=== PATIENT | female | born 1950 | race Caucasian/White ===

== ENCOUNTER 2018-09-07 08:30 | Outpatient (CLI) | payer BC, MEDICARE ==
[~2018-09-07] VITALS: Ht 147.3 cm; Wt 44.5 kg
[2018-09-07] MEDS ORDERED: LORA0.5T PO (08:45)
[2018-09-07] MEDS ORDERED: TRAM50TA2 PO (08:45)
== END 2018-09-07 10:04 | disposition home or self-care (01) ==
LOC: PREOP 08:30
PROVIDERS: ATTEND Otolaryngology Otolaryngology/Facial Plastic Surgery
DX: Z01.818 Encounter for other preprocedural examination (principal)

== ENCOUNTER 2018-09-09 07:20 | Day surgery (SDC) | payer BC, MEDICARE, OTHER ==
[~2018-09-09] VITALS: Ht 147.3 cm; Wt 44.5 kg
[~2018-09-09 07:20] MED LIST: LORA0.5T PO; TRAM50TA2 PO
[2018-09-09] MEDS ORDERED: LACTATED RINGERS 1,000 ML IV PRN (07:42)
[2018-09-09 07:47] VITALS: BP 110/88
[2018-09-09 08:11] LABS: BASOPHILS # (AUTO) 0.1 10^3/uL (0.0-0.1); BASOPHILS % (AUTO) 1 % (0-10); EOSINOPHILS # (AUTO) 0.5 10^3/uL (0.0-0.3); EOSINOPHILS % (AUTO) 6 % (0-10); HEMATOCRIT 37 % (35-52); HEMOGLOBIN 11.7 G/DL (11.5-16.0); LYMPHOCYTES % (AUTO) 24 % (12-44); MEAN CORPUSCULAR HEMOGLOBIN 26 PG (25-34); MEAN CORPUSCULAR HGB CONC 32 G/DL (32-36); MEAN CORPUSCULAR VOLUME 83 FL (80-99); MEAN PLATELET VOLUME 10.5 FL (7.4-10.4); MONOCYTES % (AUTO) 12 % (0-12); NEUTROPHILS # (AUTO) 4.7 X 10^3 (1.8-7.8); NEUTROPHILS % (AUTO) 57 % (42-75); PLATELET COUNT 258 10^3/uL (130-400); WHITE BLOOD COUNT 8.3 10^3/uL (4.3-11.0)
--- NOTE | 2018-09-09 08:15 | Progress Note-Pre Operative ---
Pre-Operative Progress Note H&P Reviewed The H&P was reviewed, patient examined and no changes noted. Date Seen by Provider: Sep 09, 2018 Time Seen by Provider: 08:00 Date H&P Reviewed: Sep 09, 2018 Time H&P Reviewed: 08:00 Pre-Operative Diagnosis: Right Neck Lesion/Mass SHILPA HELLER MD Sep 09, 2018 08:15
[2018-09-09 08:27] LABS: BUN/CREATININE RATIO 8; CALCIUM 9.2 MG/DL (8.5-10.1); CARBON DIOXIDE 26 MMOL/L (21-32); CHLORIDE 104 MMOL/L (98-107); CREATININE SERUM 0.79 MG/DL (0.60-1.30); GFR ESTIMATED > 60; GLUCOSE 90 MG/DL (70-105); POTASSIUM 2.9 MMOL/L (3.6-5.0); SODIUM 141 MMOL/L (135-145)
[2018-09-09] MEDS ORDERED: DEXAMETHASONE 10 MG/ML (DECADRON) 1 ML VIAL ONE (08:34)
[2018-09-09] MEDS ORDERED: ONDANSETRON 4 MG/2 ML (SDV) Z0FRAN ONE ×2 (08:34→08:54)
[2018-09-09] MEDS ORDERED: PROPOFOL INJECTION 50 ML IV ONE (08:34)
[2018-09-09] MEDS ORDERED: SEVOFLURANE (ULTANE) 15 ML INHAL SOLN ONE ×4 (08:34→10:43)
[2018-09-09] MEDS ORDERED: LIDOCAINE PF 2% 5 ML (XYLOCAINE) VIAL ONE (08:34)
[2018-09-09] MEDS ORDERED: proPOfol 200 MG/20 ML (DIPRIVAN) VIAL IV ONE (08:34)
[2018-09-09] MEDS ORDERED: fentaNYL INJECTION 100 MCG/2 ML AMP ONE (08:35)
[2018-09-09] MEDS ORDERED: MIDAZOLAM 2 MG/2 ML (VERSED) VIAL ONE (08:35)
[2018-09-09] MEDS ORDERED: LIDOCAINE/EPI 1%-1:100,000 (XYLOCAINE) 20ML ONE (08:47)
[2018-09-09] MEDS ORDERED: MUPIROCIN 2% OINT 22 GM (BACTROBAN) TUBE ONE (08:47)
[2018-09-09] MEDS ORDERED: SCOPOLAMINE 1.5 MG (TRANSDERM-SCOP) PATCH ONE (08:54)
[2018-09-09] MEDS ORDERED: FAMOTIDINE 20MG/2ML IV (PEPCID) ONE (08:54)
[2018-09-09] MEDS ORDERED: FAMOTIDINE 20MG/2ML IV (PEPCID) IV ONE (09:00)
[2018-09-09] MEDS ORDERED: ONDANSETRON 4 MG/2 ML (SDV) Z0FRAN IV ONE (09:00)
[2018-09-09] MEDS ORDERED: SCOPOLAMINE 1.5 MG (TRANSDERM-SCOP) PATCH TOP ONE (09:00)
[2018-09-09] MEDS ORDERED: GLYCOPYRROLATE 0.2 MG/ML (ROBINUL) 2 ML VIAL ONE (10:13)
[2018-09-09] MEDS ORDERED: PHENYLEPHRINE 100 MCG/ML 10 ML (ANESTHESIA) SYR ONE (10:17)
--- NOTE | 2018-09-09 10:18 | Progress Note-Post Operative ---
Post-Operative Progess Note Surgeon (s)/Wealth Management Director (s) Surgeon SHILPA HELLER MD Wealth Management Director n/a Pre-Operative Diagnosis Right Neck Lesion/Mass Post-Operative Diagnosis same Post-Op Procedure Note Date of Procedure: Sep 09, 2018 Name of Procedure Performed: Excision of Right Neck Lesion with Intermediate Repair Description & Findings Description and Findings: n/a Anesthesia Type lma Estimated Blood Loss minimal Packing none. Specimen(s) collected/removed right neck lesion to pahtology SHILPA HELLER MD Sep 09, 2018 10:18
[2018-09-09] MEDS ORDERED: ACETAMINOPHEN 325 MG TABLET PO PRN (10:30)
[2018-09-09] MEDS ORDERED: HYDROcodone/APAP 5 MG/325 MG (LORTAB) TAB PO PRN (10:30)
[2018-09-09 11:40] VITALS: BP 121/50
[2018-09-09 12:10] VITALS: BP 121/50
[2018-09-09 12:40] VITALS: BP 123/56
[2018-09-09 13:00] VITALS: BP 123/56
--- NOTE | 2018-09-09 13:37 | Anesthesia-General Post-Op ---
General Patient Condition Mental Status/LOC: Same as Preop Cardiovascular: Satisfactory Nausea/Vomiting: Absent Respiratory: Satisfactory Pain: Controlled Complications: Absent Post Op Complications Complications None Follow Up Care/Instructions Patient Instructions None needed. Anesthesia/Patient Condition Patient Condition Patient is doing well, no complaints, stable vital signs, no apparent adverse anesthesia problems. No complications reported per nursing. GOVIND VALVERDE CRNA Sep 09, 2018 13:37
== END 2018-09-09 13:00 | disposition home or self-care (01) ==
LOC: SDC 07:20
PROVIDERS: ATTEND Otolaryngology Otolaryngology/Facial Plastic Surgery
DX: L08.9 Local infection of the skin and subcutaneous tissue, unspecified (principal); I50.9 Heart failure, unspecified; D64.9 Anemia, unspecified; Z95.2 Presence of prosthetic heart valve; Z79.899 Other long term (current) drug therapy
CPT/HCPCS: 36415; 80048; 85025; 87081; 88305; 88331

== ENCOUNTER → 2018-10-23 | Outpatient (CLI) | payer BC, MEDICARE, OTHER ==
--- NOTE | 2018-10-23 12:29 | Diagnostic Imaging Report ---
INDICATION: Shortness of breath. COMPARISON: None available. TECHNIQUE: Frontal and lateral radiographs of the chest dated 10/23/2018. FINDINGS: Post surgical changes are identified with plate and screw fixation of the right mandible. Postsurgical changes of a median sternotomy and prosthetic cardiac valve are identified. The cardiac silhouette is mildly enlarged without significant pulmonary vascular congestion. The lungs are clear of focal pulmonary opacity. No pleural effusion. No pneumothorax. No acute osseous abnormality. IMPRESSION: Mild cardiomegaly without overt congestive heart failure or additional superimposed acute cardiopulmonary abnormality. Additional postsurgical and chronic findings as above. Dictated by: Dictated on workstation # [id number]
== END ==
LOC: RAD FS 12:08
PROVIDERS: ATTEND Nurse Practitioner Family
DX: I51.7 Cardiomegaly (principal); R06.02 Shortness of breath; Z98.890 Other specified postprocedural states; Z95.2 Presence of prosthetic heart valve
CPT/HCPCS: 71046

== ENCOUNTER 2018-12-28 11:47 | Emergency (ER) | payer BC, MEDICARE, OTHER ==
[~2018-12-28] VITALS: Ht 147.3 cm; Wt 48.1 kg
--- OUTSIDE RECORDS SUMMARY | 2018-12-28 11:51 | XMS REPORT | Continuity of Care Document ---
Author Organization Unknown Address Unknown Allergies Active Description Code Type Severity Reaction Onset Reported/Identified Relationship to Patient Clinical Status Yes tetracycline [id number] Drug Allergy Unknown N/A 09/07/2018 Medications There is no data. Problems Date Dx Coded Attending Type Code Diagnosis Diagnosed By 09/07/2018 SHILPA HELLER MD, Ot Z01.818 ENCOUNTER FOR OTHER PREPROCEDURAL EXAMIN 09/07/2018 SHILPA HELLER MD, Ot Z01.818 ENCOUNTER FOR OTHER PREPROCEDURAL EXAMIN 09/09/2018 SHILPA HELLER MD, Ot D64.9 ANEMIA, UNSPECIFIED 09/09/2018 SHILPA HELLER MD, Ot I50.9 HEART FAILURE, UNSPECIFIED 09/09/2018 SHILPA HELLER MD Ot L08.9 LOCAL INFECTION OF THE SKIN AND SUBCUTAN 09/09/2018 SHILPA HELLER MD, Ot L98.9 DISORDER OF THE SKIN AND SUBCUTANEOUS TI 09/09/2018 SHILPA HELLER MD, Ot Z79.899 OTHER CARE HOME (CURRENT) DRUG THERAPY 09/09/2018 SHILPA HELLER MD Ot Z95.2 PRESENCE OF PROSTHETIC HEART VALVE 09/14/2018 SHILPA HELLER MD, Ot D64.9 ANEMIA, UNSPECIFIED 09/14/2018 SHILPA HELLER MD, Ot I50.9 HEART FAILURE, UNSPECIFIED 09/14/2018 SHILPA HELLER MD, Ot L08.9 LOCAL INFECTION OF THE SKIN AND SUBCUTAN 09/14/2018 SHILPA HELLER MD, Ot Z79.899 OTHER CARE HOME (CURRENT) DRUG THERAPY 09/14/2018 SHILPA HELLER MD Ot Z95.2 PRESENCE OF PROSTHETIC HEART VALVE 10/23/2018 O'ANT HUTCHISON APRN Ot I51.7 CARDIOMEGALY 10/23/2018 O'ANT HUTCHISON APRN Ot R06.02 SHORTNESS OF BREATH 10/23/2018 Nuvia'ANT HUTCHISON APRN Ot Z95.2 PRESENCE OF PROSTHETIC HEART VALVE 10/23/2018 O'DELL, ANT K AEROPHYSICIST Ot Z98.890 OTHER SPECIFIED POSTPROCEDURAL STATES 10/23/2018 O'DELL, ANT K AEROPHYSICIST Ot I51.7 CARDIOMEGALY 10/23/2018 O'DELL, ANT K AEROPHYSICIST Ot R06.02 SHORTNESS OF BREATH 10/23/2018 O'DELL, ANT K AEROPHYSICIST Ot Z95.2 PRESENCE OF PROSTHETIC HEART VALVE 10/23/2018 O'DELL, ANT K AEROPHYSICIST Ot Z98.890 OTHER SPECIFIED POSTPROCEDURAL STATES 10/25/2018 O'DELL, ANT K AEROPHYSICIST Ot I51.7 CARDIOMEGALY 10/25/2018 O'DELL, ANT K AEROPHYSICIST Ot R06.02 SHORTNESS OF BREATH 10/25/2018 O'DELL, ANT K AEROPHYSICIST Ot Z95.2 PRESENCE OF PROSTHETIC HEART VALVE 10/25/2018 O'DELL, ANT K AEROPHYSICIST Ot Z98.890 OTHER SPECIFIED POSTPROCEDURAL STATES 10/25/2018 O'DELL, ANT K AEROPHYSICIST Ot I51.7 CARDIOMEGALY 10/25/2018 O'DELL, ANT K AEROPHYSICIST Ot R06.02 SHORTNESS OF BREATH 10/25/2018 O'DELL, ANT K AEROPHYSICIST Ot Z95.2 PRESENCE OF PROSTHETIC HEART VALVE 10/25/2018 O'DELL, ANT K AEROPHYSICIST Ot Z98.890 OTHER SPECIFIED POSTPROCEDURAL STATES 10/25/2018 O'DELL, ANT K AEROPHYSICIST Ot I51.7 CARDIOMEGALY 10/25/2018 O'DELL, ANT K AEROPHYSICIST Ot R06.02 SHORTNESS OF BREATH 10/25/2018 O'DELL, ANT K AEROPHYSICIST Ot Z95.2 PRESENCE OF PROSTHETIC HEART VALVE 10/25/2018 O'DELL, ANT K AEROPHYSICIST Ot Z98.890 OTHER SPECIFIED POSTPROCEDURAL STATES 11/05/2018 O'DELL, ANT K AEROPHYSICIST Ot I51.7 CARDIOMEGALY 11/05/2018 O'DELL, ANT K AEROPHYSICIST Ot R06.02 SHORTNESS OF BREATH 11/05/2018 O'DELL, ANT K AEROPHYSICIST Ot Z95.2 PRESENCE OF PROSTHETIC HEART VALVE 11/05/2018 O'KIANNA ANT Faye YA Ot Z98.890 OTHER SPECIFIED POSTPROCEDURAL STATES 11/19/2018 O'KIANNAANT YA Ot I51.7 CARDIOMEGALY 11/19/2018 O'KIANNA ANT Yunier PANDYA Ot R06.02 SHORTNESS OF BREATH 11/19/2018 O'KIANNA ANT Yunier PANDYA Ot Z95.2 PRESENCE OF PROSTHETIC HEART VALVE 11/19/2018 O'KIANNA ANT Yunier PANDYA Ot Z98.890 OTHER SPECIFIED POSTPROCEDURAL STATES Procedures There is no data. Results Test Result Range Complete blood count (CBC) with automated white blood cell (WBC) differential - 09/09/18 08:00 Blood leukocytes automated count (number/volume) 8.3 10*3/uL 4.3-11.0 Blood erythrocytes automated count (number/volume) 4.47 10*6/uL 4.35-5.85 Venous blood hemoglobin measurement (mass/volume) 11.7 g/dL 11.5-16.0 Blood hematocrit (volume fraction) 37 % 35-52 Automated erythrocyte mean corpuscular volume 83 [foz_us] 80-99 Automated erythrocyte mean corpuscular hemoglobin (mass per erythrocyte) 26 pg 25-34 Automated erythrocyte mean corpuscular hemoglobin concentration measurement (mass/volume) 32 g/dL 32-36 Automated erythrocyte distribution width ratio 16.0 % 10.0- 14.5 Automated blood platelet count (count/volume) 258 10*3/uL 130-400 Automated blood platelet mean volume measurement 10.5 [foz_us] 7.4-10.4 Automated blood neutrophils/100 leukocytes 57 % 42-75 Automated blood lymphocytes/100 leukocytes 24 % 12-44 Blood monocytes/100 leukocytes 12 % 0-12 Automated blood eosinophils/100 leukocytes 6 % 0-10 Automated blood basophils/100 leukocytes 1 % 0-10 Blood neutrophils automated count (number/volume) 4.7 10*3 1.8-7.8 Blood lymphocytes automated count (number/volume) 2.0 10*3 1.0-4.0 Blood monocytes automated count (number/volume) 1.0 10*3 0.0- 1.0 Automated eosinophil count 0.5 10*3/uL 0.0-0.3 Automated blood basophil count (count/volume) 0.1 10*3/uL 0.0-0.1 Whole blood basic metabolic panel - 09/09/18 08:00 Serum or plasma sodium measurement (moles/volume) 141 mmol/L 135-145 Serum or plasma potassium measurement (moles/volume) 2.9 mmol/L 3.6-5.0 Serum or plasma chloride measurement (moles/volume) 104 mmol/L 98-107 Carbon dioxide 26 mmol/L 21-32 Serum or plasma anion gap determination (moles/volume) 11 mmol/L 5-14 Serum or plasma urea nitrogen measurement (mass/volume) 6 mg/dL 7-18 Serum or plasma creatinine measurement (mass/volume) 0.79 mg/dL 0.60-1.30 Serum or plasma urea nitrogen/creatinine mass ratio 8 NRG Serum or plasma creatinine measurement with calculation of estimated glomerular filtration rate > NRG Serum or plasma glucose measurement (mass/volume) 90 mg/dL 70-105 Serum or plasma calcium measurement (mass/volume) 9.2 mg/dL 8.5-10.1 Methicillin resistant Staphylococcus aureus (MRSA) screening culture - 09/09/18 08:15 Methicillin resistant Staphylococcus aureus (MRSA) screening culture NEG NRG Encounters ACCT No. Visit Date/Time Discharge Status Pt. Type Provider Facility Loc./Unit Complaint [id number] 10/23/2018 12:08:00 10/23/2018 23:59:59 CLS Outpatient ANT NEVES APRN [facility] RAD FS SHORTNESS OF BREATH [id number] 09/09/2018 07:20:00 09/09/2018 13:00:00 DIS Outpatient SHILPA HELLER MD [facility] SDC LESION RIGHT SIDE OF NECK [id number] 09/07/2018 08:30:00 09/07/2018 10:04:00 DIS Outpatient SHILPA HELLER MD [facility] PREOP RIGHT NECK LESION
[2018-12-28 12:24] LABS: HEMATOCRIT 40 % (35-52); MEAN CORPUSCULAR HEMOGLOBIN 27 PG (25-34); MEAN CORPUSCULAR VOLUME 85 FL (80-99); WHITE BLOOD COUNT 6.4 10^3/uL (4.3-11.0)
--- NOTE | 2018-12-28 12:24 | ED Respiratory ---
General Chief Complaint: Respiratory Problems Stated Complaint: SOB; DIZZINESS History of Present Illness Date Seen by Provider: Dec 28, 2018 Time Seen by Provider: 12:00 Initial Comments The patient is a 68-year-old female with a history of anxiety on daily Ativan, chronic pain on daily tramadol, history of benign neck mass resection 09/2018, history of what sounds like total bioprosthetic aortic valve replacement completed 09/2018 with associated repair of a thoracic aortic aneurysm up at [facility]. The patient's executive officer is Dr. King at [facility]. The patient presents with concern for 2 weeks of indolent and gradually worsening dyspnea with exertion and lightheadedness with exertion. She states that she has no symptoms at all at rest but notices that her exercise tolerance has decreased and that she becomes dyspneic and has to stop and rest while ambul ating around a track at the [employer] that she and her routinely walk at. She states this is quite unusual for her. Upon initial evaluation in the emergency department the patient is resting comfortably in absolutely no distress and speaks comfortably in full sentences and did ambulate into the emergency department with a narrow, steady gait. Initial vital signs are reassuring. Patient denies associated fevers, headache, focal weakness, numbness, tingling, neck stiffness, vision changes, shortness of breath at rest, chest pain of any kind at any time, abdominal pain, flank pain, back pain, dysuria or hematuria, changes in bowel habits. Patient reportedly contacted her executive officer this morning and was instructed to come to the emergency department for further evaluation. Allergies and Home Medications Allergies Coded Allergies: tetracycline (Verified Allergy, Unknown, 09/07/18) Home Medications Lorazepam 0.5 Mg Tablet, 0.5 MG PO BID, (Reported) Tramadol HCl 50 Mg Tablet, 100 MG PO TID, (Reported) Patient Home Medication List Home Medication List Reviewed: Yes Review of Systems Review of Systems Constitutional: see HPI All Other Systems Reviewed Negative Unless Noted: Yes Past Xplsoqo-Nzupma-Tdvegt Hx Past Med/Social Hx: Reviewed Nursing Past Med/Soc Hx Patient Social History 2nd Hand Smoke Exposure: No Recent Hopitalizations: No Immunizations Up To Date Date of Pneumonia Vaccine: Jul 27, 2017 Seasonal Allergies Seasonal Allergies: No Past Medical History Surgeries: Yes (part of jaw removed r/t cancer) Gallbladder, Valve Replacement Respiratory: No Cardiac: Yes (aortic valve replacement, CHF) Heart Murmur, Valvular Heart Disease Neurological: No Genitourinary: No Gastrointestinal: No Musculoskeletal: Yes Arthritis Endocrine: No HEENT: No (cataracts removed) Glaucoma Cancer: Yes (jaw cancer) What Type of Treatment Did You: Surgical Intervention Psychosocial: Yes Anxiety Integumentary: Yes (skin lesion) Blood Disorders: Yes (anemia at times) Family Medical History Reviewed Nursing Family Hx Physical Exam Vital Signs - First Documented 12/28/18 11:52 Temp 98.3 Pulse 85 Resp 20 B/P (MAP) 144/50 (81) Pulse Ox 97 O2 Delivery Room Air Capillary Refill : Height: 4'10.00" Weight: 98lbs. 0.0oz. 44.475876dz; 20.5 BMI Method: General Appearance: no apparent distress This is an older female appearing nontoxic and in no acute distress. Head is normocephalic and atraumatic. Neck is supple and nontender. Oropharynx is moist. Lungs are clear to auscultation at all stations. There is normal S1 and S2 without rubs or gallops and capillary refill is appropriate, less than 2 seconds globally. There is a loud systolic murmur consistent with murmur of bioprosthetic aortic valve. Skin is warm and dry without cyanosis, clubbing or any dependent peripheral edema. Psychiatrically, the patient demonstrates appropriate mood and affect and is alert. Neurologically, the patient moves all extremities equally and has normal strength and sensation to all extremities and no lateralizing deficits are grossly evident. She is alert and oriented 4 and ambulates with a narrow, steady gait in the emergency department. Progress/Results/Core Measures Suspected Sepsis SIRS Temperature: Pulse: Respiratory Rate: Laboratory Tests 12/28/18 12:00: White Blood Count 6.4 Blood Pressure / Mean: Laboratory Tests 12/28/18 12:00: Creatinine 1.05, INR Comment 1.1, Platelet Count 228, Total Bilirubin 0.5 Results/Orders Lab Results Laboratory Tests Test 12/28/18 12:00 12/28/18 12:22 Range/Units White Blood Count 6.4 4.3-11.0 10^3/uL Red Blood Count 4.74 4.35-5.85 10^6/uL Hemoglobin 13.0 11.5-16.0 G/DL Hematocrit 40 35-52 % Mean Corpuscular Volume 85 80-99 FL Mean Corpuscular Hemoglobin 27 25-34 PG Mean Corpuscular Hemoglobin Concent 32 32-36 G/DL Red Cell Distribution Width 15.4 H 10.0-14.5 % Platelet Count 228 130-400 10^3/uL Mean Platelet Volume 10.7 H 7.4-10.4 FL Neutrophils (%) (Auto) 47 42-75 % Lymphocytes (%) (Auto) 37 12-44 % Monocytes (%) (Auto) 12 0-12 % Eosinophils (%) (Auto) 3 0-10 % Basophils (%) (Auto) 1 0-10 % Neutrophils # (Auto) 3.1 1.8-7.8 X 10^3 Lymphocytes # (Auto) 2.4 1.0-4.0 X 10^3 Monocytes # (Auto) 0.7 0.0-1.0 X 10^3 Eosinophils # (Auto) 0.2 0.0-0.3 10^3/uL Basophils # (Auto) 0.1 0.0-0.1 10^3/uL Prothrombin Time 14.3 12.2-14.7 SEC INR Comment 1.1 0.8-1.4 Activated Partial Thromboplast Time 29 24-35 SEC Sodium Level 141 135-145 MMOL/L Potassium Level 3.8 3.6-5.0 MMOL/L Chloride Level 101 98-107 MMOL/L Carbon Dioxide Level 26 21-32 MMOL/L Anion Gap 14 5-14 MMOL/L Blood Urea Nitrogen 9 7-18 MG/DL Creatinine 1.05 0.60-1.30 MG/DL Estimat Glomerular Filtration Rate 52 BUN/Creatinine Ratio 9 Glucose Level 96 70-105 MG/DL Calcium Level 10.1 8.5-10.1 MG/DL Corrected Calcium 9.7 8.5-10.1 MG/DL Total Bilirubin 0.5 0.1-1.0 MG/DL Aspartate Amino Transf (AST/SGOT) 17 5-34 U/L Alanine Aminotransferase (ALT/SGPT) 7 0-55 U/L Alkaline Phosphatase 91 40-136 U/L Troponin T 19 H <=10 NG/L Pro-B-Type Natriuretic Peptide 1153.0 H <75.0 PG/ML Total Protein 7.7 6.4-8.2 GM/DL Albumin 4.5 3.2-4.5 GM/DL Urine Color YELLOW Urine Clarity CLEAR Urine pH 5.5 5-9 Urine Specific [place] 1.025 H 1.016-1.022 Urine Protein NEGATIVE NEGATIVE Urine Glucose (UA) NEGATIVE NEGATIVE Urine Ketones 2+ H NEGATIVE Urine Nitrite NEGATIVE NEGATIVE Urine Bilirubin NEGATIVE NEGATIVE Urine Urobilinogen 0.2 NORMAL MG/DL Urine Leukocyte Esterase TRACE H NEGATIVE Urine RBC (Auto) NEGATIVE NEGATIVE Urine RBC 0-2 /HPF Urine WBC 0-2 /HPF Urine Squamous Epithelial Cells 25-50 H /HPF Urine Crystals NONE /LPF Urine Bacteria TRACE /HPF Urine Casts NONE /LPF Urine Mucus MODERATE H /LPF Urine Culture Indicated NO My Orders Orders - KATHLEEN MORENO MD Cbc With Automated Diff (12/28/18 12:15) Comprehensive Metabolic Panel (12/28/18 12:15) Troponin T (12/28/18 12:15) Ekg Tracing (12/28/18 12:15) Chest Pa/Lat (2 View) (12/28/18 12:15) Ua Culture If Indicated (12/28/18 12:15) Protime With Inr (12/28/18 12:15) Partial Thromboplastin Time (12/28/18 12:15) Probnp Fs (12/28/18 12:15) Vital Signs/I&O 12/28/18 12/28/18 11:52 11:55 Temp 98.3 Pulse 85 85 84 88 Resp 20 B/P (MAP) 144/50 (81) 144/50 136/72 108/51 Pulse Ox 97 O2 Delivery Room Air Capillary Refill : Progress Note : Time: 12:27 Progress Note Clinical examination quite reassuring. Stable 68-year-old female with indolently worsening mild dyspnea with exertion and lightheadedness with exertion 3 months after TAVR procedure at [facility]. Will check labs and EKG and chest x-ray and will then reevaluate. Will attempt to contact the patient's executive officer with results of workup to facilitate disposition. Patient and family understand and agree with the plan of care. Update 1600: Case is discussed with Dr. King of [facility] cardiology who is the patient's executive officer. He agrees with me that the patient would benefit from admission to [facility] for attention from cardiology, troponin trending and further care. We will therefore transfer via EMS. Nurse practitioner Neha accepts on behalf of Dr. Sinclair. ECG Comment Sinus rhythm, rate 82, no acute ST elevation or depression, chronic ST depressions and TWIs are noted in lateral leads which appear stable since [place]. ME 187, QRS 116, QTc 468, EP interpretation. Diagnostic Imaging Diagonstic Imaging: Xray Comments CHEST PA/LAT (2 VIEW) INDICATION: Respiratory problems. COMPARISON: 10/23/2018. FINDINGS: Frontal and lateral views of the chest demonstrate mild cardiomegaly. Pulmonary vasculature is within normal limits. Sternotomy wires are noted, as are postsurgical changes of previous aortic valve repair. Lungs are hyperinflated, but are otherwise clear. There are no signs of infiltrate, pleural effusions or pneumothoraces. The visualized osseous structures show no acute abnormalities. IMPRESSION: 1. Cardiomegaly, but no evidence of overt failure or focal infiltrate. 2. Hyperinflated appearance of the lungs. Correlation with history of underlying obstructive pulmonary disease is recommended. Dictated on workstation # [id number] Departure Impression Primary Impression: Dyspnea on exertion Additional Impressions: Dizziness and giddiness Elevated troponin Elevated brain natriuretic peptide (BNP) level Disposition: [facility] Condition: Stable Departure-Patient Inst. Referrals: KRISTAL RUTLEDGE MD (PCP/Family) Primary Care Physician KATHLEEN MORENO MD Dec 28, 2018 12:23
[2018-12-28 12:25] LABS: BASOPHILS # (AUTO) 0.1 10^3/uL (0.0-0.1); BASOPHILS % (AUTO) 1 % (0-10); EOSINOPHILS # (AUTO) 0.2 10^3/uL (0.0-0.3); EOSINOPHILS % (AUTO) 3 % (0-10); LYMPHOCYTES # (AUTO) 2.4 X 10^3 (1.0-4.0); LYMPHOCYTES % (AUTO) 37 % (12-44); MEAN CORPUSCULAR HGB CONC 32 G/DL (32-36); MEAN PLATELET VOLUME 10.7 FL (7.4-10.4); MONOCYTES # (AUTO) 0.7 X 10^3 (0.0-1.0); MONOCYTES % (AUTO) 12 % (0-12); NEUTROPHILS # (AUTO) 3.1 X 10^3 (1.8-7.8); NEUTROPHILS % (AUTO) 47 % (42-75); PLATELET COUNT 228 10^3/uL (130-400); RED CELL DISTRIBUTION WIDTH 15.4 % (10.0-14.5)
--- NOTE | 2018-12-28 12:30 | NUR ---
Pt made RAD ready after Dr assessed pt.
--- NOTE | 2018-12-28 12:45 | NUR ---
RN walked to xray to verify patient was ready for 2 view CXR. Xray will come get pt shortly.
[2018-12-28 12:46] LABS: PROTHROMBIN TIME PATIENT 14.3 SEC (12.2-14.7)
[2018-12-28 12:47] LABS: INR 1.1 (0.8-1.4)
[2018-12-28 12:47] LABS: BILIRUBIN,URINE NEGATIVE (NEGATIVE); CLARITY,URINE CLEAR; COLOR,URINE YELLOW; GLUCOSE, URINE (UA) NEGATIVE (NEGATIVE); KETONES,URINE 2+ (NEGATIVE); NITRITE,URINE NEGATIVE (NEGATIVE); PH,URINE 5.5 (5-9); PROTEIN,URINE NEGATIVE (NEGATIVE); UROBILINOGEN,URINE 0.2 MG/DL (NORMAL)
[2018-12-28 12:48] LABS: BACTERIA,URINE TRACE /HPF; LEUKOCYTE ESTERASE ,URINE TRACE (NEGATIVE); RBC,URINE 0-2 /HPF; SQUAMOUS EPITHELIAL CELL,UR 25-50 /HPF; WBC,URINE 0-2 /HPF
[2018-12-28 12:49] LABS: BILIRUBIN,TOTAL 0.5 MG/DL (0.1-1.0); CALCIUM 10.1 MG/DL (8.5-10.1); CREATININE SERUM 1.05 MG/DL (0.60-1.30); POTASSIUM 3.8 MMOL/L (3.6-5.0)
[2018-12-28 12:50] LABS: ALBUMIN 4.5 GM/DL (3.2-4.5); TOTAL PROTEIN 7.7 GM/DL (6.4-8.2)
--- NOTE | 2018-12-28 13:14 | Diagnostic Imaging Report ---
INDICATION: Respiratory problems. COMPARISON: 10/23/2018. FINDINGS: Frontal and lateral views of the chest demonstrate mild cardiomegaly. Pulmonary vasculature is within normal limits. Sternotomy wires are noted, as are postsurgical changes of previous aortic valve repair. Lungs are hyperinflated, but are otherwise clear. There are no signs of infiltrate, pleural effusions or pneumothoraces. The visualized osseous structures show no acute abnormalities. IMPRESSION: 1. Cardiomegaly, but no evidence of overt failure or focal infiltrate. 2. Hyperinflated appearance of the lungs. Correlation with history of underlying obstructive pulmonary disease is recommended. Dictated by: Dictated on workstation # [id number]
--- NOTE | 2018-12-28 15:30 | NUR ---
Dr in room discussing the plan to transfer. Pt wanting to discuss possible leave by POV. Dr will return to room.
--- NOTE | 2018-12-28 16:00 | NUR ---
Pt decision to ride on EMS for transfer. Planning transfer now.
--- NOTE | 2018-12-28 17:00 | NUR ---
[facility] here for transfer.
--- NOTE | 2018-12-28 17:10 | NUR ---
Pt c/o headache. Dr notified. Tramadol 50 mg p.o. given.
[2018-12-28 17:15] VITALS: BP 135/65
--- NOTE | 2018-12-28 17:15 | NUR ---
Pt departing at this time on transfer to [facility]. No c/o CP, pt resting and no SOA reported. Pt has rec'd pain med for headache. Report to EMS.
== END 2018-12-28 17:15 | disposition short-term general hospital (02) ==
LOC: EDUNIT# 11:47 → ER FS 11:49
DX: R06.09 Other forms of dyspnea (principal); R42 Dizziness and giddiness; R79.89 Other specified abnormal findings of blood chemistry; I50.9 Heart failure, unspecified; F41.9 Anxiety disorder, unspecified; Z88.1 Allergy status to other antibiotic agents; Z95.2 Presence of prosthetic heart valve; Z98.890 Other specified postprocedural states; Z86.018 Personal history of other benign neoplasm; Z85.818 Personal history of malignant neoplasm of other sites of lip, oral cavity, and pharynx
CPT/HCPCS: 36415; 71046; 80053; 81000; 83880; 84484; 85025; 85610; 85730; 93005

== ENCOUNTER 2021-08-25 21:52 | Emergency (ER) | payer MEDICARE, OTHER ==
[~2021-08-25 21:52] MED LIST changes: -TRAM50TA2 PO; +TRM50T PO
[2021-08-25] MEDS ORDERED: FAMOTIDINE 20MG/2ML IV (PEPCID) IV STA (22:07)
[2021-08-25] MEDS ORDERED: LACTATED RINGERS 1,000 ML IV STA ×2 (22:07→23:38)
--- NOTE | 2021-08-25 22:07 | ED GI ---
General Stated Complaint: NAUSEA/VOMITING History of Present Illness Date Seen by Provider: Aug 25, 2021 Time Seen by Provider: 22:03 Initial Comments 8-year-old female presents with nausea and vomiting. She reports she has had vomiting for 4 days. She was tested positive for Covid on 08/15/2021. Patient denies abdominal pain, diarrhea, fever, chills, cough, shortness of breath or any other associated symptoms. Allergies and Home Medications Allergies Coded Allergies: tetracycline (Verified Allergy, Unknown, 09/07/18) Patient Home Medication List Home Medication List Reviewed: Yes Lorazepam (Lorazepam) 0.5 Mg Tablet, 0.5 MG PO BID, (Reported) Entered as Reported by: CAROLYN SHAH on 09/07/18 0845 Tramadol HCl (Tramadol HCl) 50 Mg Tablet, 100 MG PO TID, (Reported) Entered as Reported by: CAROLYN SHAH on 09/07/18 0845 Review of Systems Review of Systems Constitutional: No chills, No fever; malaise Respiratory: No Symptoms Reported; Denies Cough, Denies Shortness of Air Cardiovascular: Denies Chest Pain, Denies Palpitations Gastrointestinal: Denies Abdominal Pain, Denies Constipated, Denies Diarrhea; Nausea, Vomiting Musculoskeletal: no symptoms reported Skin: no symptoms reported Psychiatric/Neurological: No Symptoms Reported Endocrine: No Symptoms Reported Past Ipusido-Anpgcd-Qzwmqy Hx Immunizations Up To Date Tetanus Booster (TDap): Unknown Seasonal Allergies Seasonal Allergies: No Past Medical History Surgeries: Yes (part of jaw removed r/t cancer, AVR (pig valve type), heart aneurysm) Gallbladder, Valve Replacement Respiratory: No Cardiac: Yes (aortic valve replacement, CHF, cardiomyopathy) Heart Murmur, Valvular Heart Disease Neurological: Yes Headaches /Migraines Genitourinary: No Gastrointestinal: Yes (Hx gastritis and gastroduodenitis) Musculoskeletal: Yes (pain of shoulders, hands, and feet) Arthritis Endocrine: No HEENT: Yes (cataracts removed) Glaucoma Cancer: Yes (jaw cancer) Did You Recieve Any Treatments: Yes What Type of Treatment Did You: Surgical Intervention Psychosocial: Yes Anxiety Integumentary: Yes (skin lesion) Blood Disorders: Yes (anemia at times) Physical Exam Vital Signs Vital Signs - First Documented 08/25/21 21:55 Temp 36.2 Pulse 174 Resp 20 B/P (MAP) 139/79 (99) Pulse Ox 100 O2 Delivery Room Air Capillary Refill : Height/Weight/BMI Height: 4'10.00" Weight: 106lbs. 0.0oz. 48.021565qt; 20.5 BMI Method:Stated General Appearance: mild distress, thin Respiratory: lungs clear, normal breath sounds Cardiovascular: tachycardia Gastrointestinal: soft, tenderness (Mild diffuse) Extremities: normal range of motion Neurologic/Psychiatric: alert, normal mood/affect, oriented x 3 Focused Exam Lactate Level 08/25/21 22:20: Lactic Acid Level 2.27*H Lactic Acid Level Laboratory Tests Test 08/25/21 22:20 Lactic Acid Level 2.27 MMOL/L (0.50-2.00) *H Progress/Results/Core Measures Results/Orders Lab Results Laboratory Tests Test 08/25/21 10:14 08/25/21 22:14 08/25/21 22:20 08/25/21 23:10 Range/Units White Blood Count 9.3 4.3-11.0 10^3/uL Red Blood Count 5.45 H 3.80-5.11 10^6/uL Hemoglobin 13.8 11.5-16.0 g/dL Hematocrit 42 35-52 % Mean Corpuscular Volume 77 L 80-99 fL Mean Corpuscular Hemoglobin 25 25-34 pg Mean Corpuscular Hemoglobin Concent 33 32-36 g/dL Red Cell Distribution Width 15.1 H 10.0-14.5 % Platelet Count 274 130-400 10^3/uL Mean Platelet Volume 10.7 9.0-12.2 fL Immature Granulocyte % (Auto) 0 % Neutrophils (%) (Auto) 64 42-75 % Lymphocytes (%) (Auto) 22 12-44 % Monocytes (%) (Auto) 13 H 0-12 % Eosinophils (%) (Auto) 0 0-10 % Basophils (%) (Auto) 0 0-10 % Neutrophils # (Auto) 6.0 1.8-7.8 X 10^3 Lymphocytes # (Auto) 2.1 1.0-4.0 X 10^3 Monocytes # (Auto) 1.2 H 0.0-1.0 X 10^3 Eosinophils # (Auto) 0.0 0.0-0.3 10^3/uL Basophils # (Auto) 0.0 0.0-0.1 10^3/uL Immature Granulocyte # (Auto) 0.0 0.0-0.1 10^3/uL Sodium Level 128 L 135-145 MMOL/L Potassium Level 2.1 *L 3.6-5.0 MMOL/L Chloride Level 83 L 98-107 MMOL/L Carbon Dioxide Level 27 21-32 MMOL/L Anion Gap 18 H 5-14 MMOL/L Blood Urea Nitrogen 15 7-18 MG/DL Creatinine 0.72 0.60-1.30 MG/DL Estimat Glomerular Filtration Rate 90 BUN/Creatinine Ratio 21 Glucose Level 130 H 70-105 MG/DL Calcium Level 9.6 8.5-10.1 MG/DL Corrected Calcium 9.2 8.5-10.1 MG/DL Magnesium Level 1.7 1.6-2.4 MG/DL Total Bilirubin 1.3 H 0.1-1.0 MG/DL Aspartate Amino Transf (AST/SGOT) 21 5-34 U/L Alanine Aminotransferase (ALT/SGPT) 11 0-55 U/L Alkaline Phosphatase 71 40-136 U/L Troponin I < 0.30 <0.30 NG/ML C-Reactive Protein < 0.30 <0.50 MG/DL Total Protein 8.0 6.4-8.2 GM/DL Albumin 4.5 3.2-4.5 GM/DL Lipase 107 H 8-78 U/L Lactic Acid Level 2.27 *H 0.50-2.00 MMOL/L Urine Color ORANGE Urine Clarity SL CLOUDY Urine pH 6.0 5-9 Urine Specific [place] 1.025 H 1.016-1.022 Urine Protein 2+ H NEGATIVE Urine Glucose (UA) NEGATIVE NEGATIVE Urine Ketones NEGATIVE NEGATIVE Urine Nitrite NEGATIVE NEGATIVE Urine Bilirubin 1+ H NEGATIVE Urine Urobilinogen 1.0 < = 1.0 MG/DL Urine Leukocyte Esterase 2+ H NEGATIVE Urine RBC (Auto) 2+ H NEGATIVE Urine RBC 50-100 H /HPF Urine WBC 5-10 H /HPF Urine Squamous Epithelial Cells RARE /HPF Urine Crystals NONE /LPF Urine Bacteria LARGE H /HPF Urine Casts PRESENT /LPF Urine Hyaline Casts 5-10 H /LPF Urine Red Blood Cell Casts 2-5 H /LPF Urine Mucus MODERATE H /LPF Urine Culture Indicated YES My Orders Orders - VIEYRA,BEATRICE L DO Ondansetron Injection (Zofran Injectio (08/25/21 22:15) Lactated Ringers (Lr 1000 Ml Iv Solution (08/25/21 22:07) Famotidine Injection (Pepcid Injection) (08/25/21 22:07) Ed Iv/Invasive Line Start (08/25/21 22:07) Cbc With Automated Diff (08/25/21 22:07) Comprehensive Metabolic Panel (08/25/21 22:07) Lipase (08/25/21 22:07) Ua Culture If Indicated (08/25/21 22:07) Crp Fs (08/25/21 22:07) Ekg Tracing (08/25/21 22:09) Monitor-Rhythm Ecg Trace Only (08/25/21 22:09) Magnesium (08/25/21 22:09) Troponin I Fs (08/25/21 22:09) Arterial Blood Gas (08/25/21 22:09) Lactic Acid Analyzer (08/25/21 22:09) Calcium Gluconate 10% Inj (Calcium Glu (08/25/21 22:15) Amiodarone For Bolus (Cordarone Bolus) (08/25/21 22:30) Potassium Cl 10meq/50ml Ivpb (Kcl 10 Meq (08/25/21 22:45) Amiodarone Injection (Cordarone Injectio (08/25/21 22:45) Acute Abd Series (08/25/21 23:10) Promethazine Injection (Phenergan Injec (08/25/21 23:15) Lactated Ringers (Lr 1000 Ml Iv Solution (08/25/21 23:38) Urine Culture (08/25/21 23:10) Ceftriaxone 1 Gm Pre-Mix (Rocephin 1 Gm (08/26/21 00:26) Medications Given in ED Current Medications Medications Dose Ordered Sig/Isaiah Route Start Time Stop Time Status Last Admin Dose Admin Amiodarone HCl 150 mg/Sodium Chloride 103 ml @ 600 mls/hr ONCE ONCE IV 08/25/21 22:30 08/25/21 22:40 DC 08/25/21 22:28 600 MLS/HR Calcium Gluconate 4.65 meq ONCE ONCE IV 08/25/21 22:15 08/25/21 22:16 DC 1/30/22 22:18 4.65 MEQ Ondansetron HCl 4 mg ONCE ONCE IVP 08/25/21 22:15 08/25/21 22:16 DC 08/25/21 22:15 4 MG Promethazine HCl 12.5 mg ONCE ONCE IVP 08/25/21 23:15 08/25/21 23:16 DC 08/25/21 23:17 12.5 MG Vital Signs/I&O 08/25/21 08/25/21 21:55 22:28 Temp 36.2 Pulse 174 170 Resp 20 B/P (MAP) 139/79 (99) 139/79 Pulse Ox 100 O2 Delivery Room Air 08/26/21 00:00 Intake Total 103 ml Balance 103 ml Progress Progress Note : Progress Note Upon arrival patient was extremely tachycardic with heart rate on the monitor obtained close to 200. EKG was performed and showed a wide-complex tachycardia with possible right bundle branch. The T waves appear to be peaked. Patient was started on IV fluids, given calcium gluconate. I called and discussed with Dr. Teresa verifying machine operator at [facility] to discuss starting amiodarone, he was in agreement. Patient was given 150 mg bolus over 10 minutes and started on amiodarone drip. Patient's heart rate transitioned from the wide complex tachycardia to a atrial fib with a heart rates initially in the 130s to 140s. Throughout her stay it slowly continue to come down in the 1 teens to 120s. I initially called [facility] since that is where her surgery and verifying machine operator was but they did not have any beds available. I also discussed with [facility] who did not have any ICU beds available. Called and discussed with [facility] who graciously accepted patient to Dr. Beltrán. Patient was transferred via EMS in stable condition. Initial ECG Impression Date: Aug 25, 2021 Initial ECG Impression Time: 22:00 Initial ECG Rate: 169 Comment wide complex tachycardia, peaked t waves EKG : EKG Time: 22:55 Rate: 139 Rhythm: A Fib/Flutter ECG Impression: Atrial Fibrillation Diagnostic Imaging Diagonstic Imaging: Xray Comments no acute findings. Reviewed: Reviewed by Me Critical Care Note Critical Care Total Time (minutes) 2 hrs Progress Patient symptoms improved significantly with resolution of her nausea and dry heaving. Her heart rate improved from a wide-complex extreme tachycardia to that atrial fibs and heart rates of the mid 110s. Departure Impression Primary Impression: Wide-complex tachycardia Additional Impressions: Atrial fibrillation Qualified Codes: I48.91 - Unspecified atrial fibrillation Nausea and vomiting Qualified Codes: R11.2 - Nausea with vomiting, unspecified Disposition: 02 XFER SHT-TRM HOSP Condition: Critical Transfer Transfer Reason: Exceeds level of care Time Spoke to Accepting Phy: 00:34 Transfer Progress Notes Patient accepted by Dr. Pimentel Transfer Facility: [facility] Method of Transfer: EMS Departure-Patient Inst. Referrals: KRISTAL RUTLEDGE MD (PCP/Family) Primary Care Physician BEATRICE VIEYRA DO Aug 25, 2021 22:07
[2021-08-25] MEDS ORDERED: ONDANSETRON 4 MG/2 ML (SDV) Z0FRAN IVP ONE (22:15)
[2021-08-25] MEDS ORDERED: CALCIUM GLUC. 10% 4.65 MEQ/10 ML VIAL IV ONE (22:15)
[2021-08-25 22:17] LABS: HEMATOCRIT 42 % (35-52); HEMOGLOBIN 13.8 g/dL (11.5-16.0); MEAN CORPUSCULAR HEMOGLOBIN 25 pg (25-34); MEAN CORPUSCULAR VOLUME 77 fL (80-99); WHITE BLOOD COUNT 9.3 10^3/uL (4.3-11.0)
[2021-08-25 22:18] LABS: BASOPHILS % (AUTO) 0 % (0-10); EOSINOPHILS % (AUTO) 0 % (0-10); LYMPHOCYTES # (AUTO) 2.1 X 10^3 (1.0-4.0); LYMPHOCYTES % (AUTO) 22 % (12-44); MEAN CORPUSCULAR HGB CONC 33 g/dL (32-36); MEAN PLATELET VOLUME 10.7 fL (9.0-12.2); MONOCYTES # (AUTO) 1.2 X 10^3 (0.0-1.0); MONOCYTES % (AUTO) 13 % (0-12); NEUTROPHILS % (AUTO) 64 % (42-75); PLATELET COUNT 274 10^3/uL (130-400)
[2021-08-25] MEDS ORDERED: AMIODARONE FOR BOLUS 150 MG in NS (IVPB) 100 ML IV ONE (22:30)
[2021-08-25 22:32] LABS: BUN/CREATININE RATIO 21; CARBON DIOXIDE 27 MMOL/L (21-32); CHLORIDE 83 MMOL/L (98-107); CREATININE SERUM 0.72 MG/DL (0.60-1.30); GFR ESTIMATED 90; GLUCOSE 130 MG/DL (70-105); POTASSIUM 2.1 MMOL/L (3.6-5.0); SODIUM 128 MMOL/L (135-145)
[2021-08-25 22:33] LABS: ALANINE AMINOTRANSFERASE 11 U/L (0-55); ALBUMIN 4.5 GM/DL (3.2-4.5); ALKALINE PHOSPHATASE 71 U/L (40-136); BILIRUBIN,TOTAL 1.3 MG/DL (0.1-1.0); CALCIUM 9.6 MG/DL (8.5-10.1); LIPASE 107 U/L (8-78); MAGNESIUM 1.7 MG/DL (1.6-2.4)
[2021-08-25] MEDS: POTASSIUM CL 10MEQ/50ML IVPB 50 ML IV SCH ×2 (22:39→23:31)
[2021-08-25] MEDS ORDERED: AMIODARONE INJECTION 450 MG in D5W IV SOLUTION (EXCEL) 250 ML IV SCH (22:45)
[2021-08-25] MEDS ORDERED: PROMETHAZINE INJ 25 MG/ML (PHENERGAN) AMP IVP ONE (23:15)
[2021-08-25 23:43] LABS: BILIRUBIN,URINE 1+ (NEGATIVE); CLARITY,URINE SL CLOUDY; COLOR,URINE ORANGE; GLUCOSE, URINE (UA) NEGATIVE (NEGATIVE); KETONES,URINE NEGATIVE (NEGATIVE); LEUKOCYTE ESTERASE ,URINE 2+ (NEGATIVE); NITRITE,URINE NEGATIVE (NEGATIVE); PROTEIN,URINE 2+ (NEGATIVE)
[2021-08-25 23:44] LABS: BACTERIA,URINE LARGE /HPF; RBC,URINE 50-100 /HPF; SQUAMOUS EPITHELIAL CELL,UR RARE /HPF
[2021-08-26] MEDS ORDERED: cefTRIAXone 1 GM PRE-MIX 50 ML IV STA (00:26)
[2021-08-26 01:12] VITALS: BP 123/71
[2021-08-26] MEDS ORDERED: POTASSIUM CL 10MEQ/50ML IVPB 50 ML IV ONE (01:30)
--- NOTE | 2021-08-26 06:43 | Diagnostic Imaging Report ---
INDICATION: Nausea and emesis Decubitus and upright views of the abdomen are obtained with single view of the chest. Comparison is made to chest x-ray of 12/28/2018. There is mild cardiomegaly. Background air trapping is present. There has been mild increase in interstitial markings in both lungs which may be due to interstitial edema or developing scarring. There has been additional mediastinal surgery without pneumothorax or significant pleural fluid identified. Bowel gas pattern is unremarkable without evidence for intraperitoneal gas. Surgical clips seen in the region of the gallbladder fossa and in the central pelvis. IMPRESSION: Interstitial prominence in the visualized lungs may be due to interstitial edema, possibly on the basis of congestive heart failure. Otherwise, no acute abnormality is seen. Dictated by: Dictated on workstation # [id number]
== END 2021-08-26 01:39 | disposition short-term general hospital (02) ==
LOC: EDUNIT# 21:52 → ER FS 21:56
DX: R00.0 Tachycardia, unspecified (principal); I48.91 Unspecified atrial fibrillation; I50.9 Heart failure, unspecified; F41.9 Anxiety disorder, unspecified; Z79.899 Other long term (current) drug therapy
CPT/HCPCS: 36415; 74022; 80053; 81000; 83605; 83690; 83735; 84484; 85025; 86141; 87088; 93005; 93041